=== PATIENT | female | born 1965 | race Caucasian/White ===

== ENCOUNTER → 2020-12-09 | Outpatient (CLI) | payer OTHER ==
[~2020-12-09] MED LIST: BENTYL 10MG CAP10 MG PO; ZOFRAN ODT 4 MG4 MG SL
== END ==
LOC: RAD 12:51
DX: M25.512 Pain in left shoulder (principal)
CPT/HCPCS: 73030

== ENCOUNTER → 2021-05-26 | Outpatient (CLI) | payer OTHER | LOC: EXRD 05-11 14:00 | DX: N15.9 Renal tubulo-interstitial disease, unspecified (principal); N28.1 Cyst of kidney, acquired | CPT/HCPCS: 76775 ==